=== PATIENT | male | born 1990 | race African-American/Black ===

== ENCOUNTER 2018-10-20 16:21 | Inpatient (IN) | payer MEDICAID, MEDICARE ==
[~2018-10-20] VITALS: Ht 160 cm; Wt 50.0 kg
[~2018-10-20 16:21] MED LIST: CINA30; PRED1TAB; TACR0.5C17
[2018-10-20] MEDS ORDERED: HYDRALAZINE 20MG/ML VIAL IV ONE (16:45)
[2018-10-20] MEDS ORDERED: MORPHINE SULFATE 4 MG/ML CPJ (NOT FOR IM USE) IV STA (16:50)
[2018-10-20] MEDS ORDERED: ONDANSETRON HCL 4MG/2ML INJ IV STA (16:50)
[2018-10-20 17:27] LABS: BASOPHILS % 1.7 % (0.0-2.0); EOSINOPHILS % 7.3 % (0.0-5.0); HEMATOCRIT. 32.5 % (42.0-52.0); HEMOGLOBIN. 10.5 g/dL (14.0-18.0); MEAN CORPUSCULAR HEMOGLOBIN 27.4 pg (28.0-32.0); MEAN CORPUSCULAR VOLUME 84.7 fL (80.0-94.0); MEAN PLATELET VOLUME 8.7 fl (7.4-10.4); MONOCYTES % 7.3 % (2.0-8.0); NEUTROPHILS % 68.7 % (40.0-76.0); PLATELET 124 x1000/uL (130-400); RED BLOOD CELL COUNT 3.84 mill/uL (4.7-6.1); RED CELL DISTRIBUTION WIDTH 22.3 % (11.6-14.6)
[2018-10-20 17:30] LABS: INR 1.1; PROTHROMBIN TIME 11.2 sec (9.1-11.1)
[2018-10-20 17:39] LABS: CHLORIDE 96 mEq/L (98-107)
[2018-10-20] MEDS ORDERED: DIPHENHYDRAMINE 50MG/ML VIAL IV ONE (18:00)
[2018-10-20 18:05] LABS: PLATELET ESTIMATE DECREASED
[2018-10-20] MEDS ORDERED: CLONIDINE 0.2MG TABLET PO ONE (18:45)
[2018-10-20] MEDS ORDERED: HYDRALAZINE 20MG/ML VIAL IV NR (20:45)
[2018-10-20] MEDS ORDERED: CLONIDINE 0.2MG TABLET PO PRN (23:42)
[2018-10-21] VITALS (73 sets, daily range): BP systolic 139–239; BP diastolic 63–143
[2018-10-21] MEDS ORDERED: HYDRALAZINE HCL 50MG TABLET PO SCH (01:00)
[2018-10-21] MEDS: ONDANSETRON HCL 4MG/2ML INJ IV PRN ×2 (01:11→15:25)
[2018-10-21] MEDS: HYDROCODONE/ACETAMINOPHEN 5/325MG TABLET PO PRN ×3 (01:14→15:02)
[2018-10-21] MEDS ORDERED: HYDR-4135 PO (02:03)
[2018-10-21] MEDS ORDERED: COR25 PO (02:03)
[2018-10-21] MEDS ORDERED: CLON0.3T4 PO (02:03)
[2018-10-21] MEDS: DIPHENHYDRAMINE 50MG/ML VIAL IV PRN ×4 (02:54→20:08)
[2018-10-21] MEDS: TEMAZEPAM 15MG CAPSULE PO PRN ×2 (02:55→22:04)
[2018-10-21] MEDS: MORPHINE SULFATE 4 MG/ML CPJ (NOT FOR IM USE) IV PRN ×4 (02:55→22:04)
[2018-10-21] MEDS ORDERED: MINOXIDIL 2.5MG TABLET PO SCH ×2 (06:00→13:24)
[2018-10-21] MEDS ORDERED: HYDRALAZINE 20MG/ML VIAL IV NR (06:00)
[2018-10-21] MEDS ORDERED: CLONIDINE 0.2MG TABLET PO PRN (07:45)
[2018-10-21] MEDS ORDERED: NITROGLYCERIN 50MG PREMIX 250 ML IV PRN (07:45)
[2018-10-21 07:50] LABS: EOSINOPHILS % 7.9 % (0.0-5.0); HEMATOCRIT. 32.5 % (42.0-52.0); HEMOGLOBIN. 10.8 g/dL (14.0-18.0); LYMPHOCYTES % 32.2 % (20.0-50.0); MEAN CORPUSCULAR HEMOGLOBIN 28.2 pg (28.0-32.0); MEAN CORPUSCULAR VOLUME 84.8 fL (80.0-94.0); MEAN PLATELET VOLUME 9.2 fl (7.4-10.4); MONOCYTES % 11.4 % (2.0-8.0); NEUTROPHILS % 46.5 % (40.0-76.0); PLATELET 134 x1000/uL (130-400); RED BLOOD CELL COUNT 3.83 mill/uL (4.7-6.1); RED CELL DISTRIBUTION WIDTH 22.3 % (11.6-14.6)
[2018-10-21] MEDS: PANTOPRAZOLE 40MG DR TABLET PO SCH (08:00)
[2018-10-21] MEDS ORDERED: LOSARTAN POTASSIUM 25 MG TABLET PO NR (11:30)
[2018-10-21] MEDS ORDERED: HYDRALAZINE HCL 50MG TABLET PO NR (11:30)
[2018-10-21] MEDS: DIPHENHYDRAMINE 50MG/ML VIAL IV NR ×2 (11:32→17:20)
[2018-10-21 13:00] LABS: CHLORIDE 98 mEq/L (98-107)
[2018-10-21 13:07] LABS: LDL CHOLESTEROL 59 mg/dL (5-100)
[2018-10-21 13:09] LABS: HDL CHOLESTEROL 45 mg/dL (40-59); T4 FREE 1.15 ng/dL (0.76-1.46)
[2018-10-21] MEDS ORDERED: ATENOLOL 25MG TABLET PO SCH (13:15)
[2018-10-21] MEDS ORDERED: HYDRALAZINE HCL 100MG TABLET PO SCH (14:00)
[2018-10-21] MEDS: ASPIRIN 81MG TABLET PO SCH (14:12)
[2018-10-21] MEDS ORDERED: MINOXIDIL 10MG TABLET PO NR (14:45)
[2018-10-21] MEDS ORDERED: NICARDIPINE 100 MG in SODIUM CHLORIDE 0.9% 60 ML IV PRN (16:45)
[2018-10-21] MEDS: NICARDIPINE 40MG/200ML PREMIX 200 ML IV PRN ×2 (16:59→20:48)
[2018-10-21] MEDS: HEPARIN 5000 UNITS/ML VIAL SUBCUT SCH (20:20)
[2018-10-21] MEDS: NIFEDIPINE XL 30MG TAB PO SCH (20:20)
[2018-10-21] MEDS: MINOXIDIL 2.5MG TABLET PO SCH (20:20)
[2018-10-22] VITALS (91 sets, daily range): BP systolic 137–192; BP diastolic 54–109
[2018-10-22] MEDS: NICARDIPINE 40MG/200ML PREMIX 200 ML IV PRN ×3 (00:03→07:56)
[2018-10-22] MEDS: ONDANSETRON HCL 4MG/2ML INJ IV PRN ×2 (00:46→08:49)
[2018-10-22] MEDS: DIPHENHYDRAMINE 50MG/ML VIAL IV PRN ×4 (00:59→19:51)
[2018-10-22] MEDS: MORPHINE SULFATE 4 MG/ML CPJ (NOT FOR IM USE) IV PRN ×4 (03:30→19:51)
[2018-10-22] MEDS: HYDROCODONE/ACETAMINOPHEN 5/325MG TABLET PO PRN ×2 (05:00→15:02)
[2018-10-22] MEDS: PANTOPRAZOLE 40MG DR TABLET PO SCH (05:44)
[2018-10-22 06:05] LABS: BASOPHILS % 1.8 % (0.0-2.0); EOSINOPHILS % 7.6 % (0.0-5.0); HEMATOCRIT. 36.6 % (42.0-52.0); HEMOGLOBIN. 11.9 g/dL (14.0-18.0); LYMPHOCYTES % 26.1 % (20.0-50.0); MEAN CORPUSCULAR HEMOGLOBIN 27.4 pg (28.0-32.0); MEAN CORPUSCULAR VOLUME 84.1 fL (80.0-94.0); MEAN PLATELET VOLUME 8.5 fl (7.4-10.4); MONOCYTES % 10.5 % (2.0-8.0); PLATELET 156 x1000/uL (130-400); RED BLOOD CELL COUNT 4.35 mill/uL (4.7-6.1); RED CELL DISTRIBUTION WIDTH 22.3 % (11.6-14.6)
[2018-10-22 06:25] LABS: PHOSPHORUS 5.4 mg/dL (2.5-4.9)
[2018-10-22] MEDS: MINOXIDIL 2.5MG TABLET PO SCH (08:28)
[2018-10-22] MEDS: NIFEDIPINE XL 30MG TAB PO SCH ×2 (08:29→20:25)
[2018-10-22] MEDS: ATENOLOL 50 MG TABLET PO SCH (08:29)
[2018-10-22] MEDS: LOSARTAN POTASSIUM 100 MG TABLET PO SCH (08:30)
[2018-10-22] MEDS: ASPIRIN 81MG TABLET PO SCH (08:30)
[2018-10-22] MEDS: HEPARIN 5000 UNITS/ML VIAL SUBCUT SCH ×2 (08:32→20:25)
[2018-10-22] MEDS ORDERED: LOSARTAN POTASSIUM 25 MG TABLET PO SCH (09:00)
[2018-10-22] MEDS ORDERED: CALCIUM CARBONATE 500MG TABLET CHEW PO PRN (10:45)
[2018-10-22] MEDS ORDERED: MINOXIDIL 2.5MG TABLET PO NR (12:30)
[2018-10-22] MEDS: NICARDIPINE 50 MG in SODIUM CHLORIDE 0.9% 250 ML IV PRN (18:51)
[2018-10-22] MEDS ORDERED: CLONIDINE 0.3MG TABLET PO NR (19:30)
[2018-10-22] MEDS ORDERED: MINOXIDIL 2.5MG TABLET PO SCH (21:00)
[2018-10-22] MEDS: TEMAZEPAM 15MG CAPSULE PO PRN (21:07)
[2018-10-22] MEDS ORDERED: IPRATROPIUM/ALBUTEROL 0.5-3(2.5)MG/3ML NEB HHN PRN (22:30)
[2018-10-23] VITALS (69 sets, daily range): BP systolic 127–181; BP diastolic 30–102
[2018-10-23] MEDS: ONDANSETRON HCL 4MG/2ML INJ IV PRN (00:15)
[2018-10-23] MEDS: MORPHINE SULFATE 4 MG/ML CPJ (NOT FOR IM USE) IV PRN ×4 (00:32→16:49)
[2018-10-23] MEDS: NICARDIPINE 50 MG in SODIUM CHLORIDE 0.9% 250 ML IV PRN ×3 (01:49→10:49)
[2018-10-23] MEDS: DIPHENHYDRAMINE 50MG/ML VIAL IV PRN ×3 (01:56→15:02)
[2018-10-23 05:37] LABS: HEMATOCRIT 37.6 % (42.0-52.0); HEMOGLOBIN 12.1 g/dL (14.0-18.0); MEAN CORPUSCULAR HEMOGLOBIN 27.2 pg (28.0-32.0); MEAN CORPUSCULAR VOLUME 84.3 fL (80.0-94.0); PLATELET 198 x1000/uL (130-400); RED BLOOD CELL COUNT 4.46 mill/uL (4.7-6.1); RED CELL DISTRIBUTION WIDTH 21.8 % (11.6-14.6)
[2018-10-23] MEDS: PANTOPRAZOLE 40MG DR TABLET PO SCH (05:47)
[2018-10-23] MEDS ORDERED: CLONIDINE 0.2MG TABLET PO SCH (06:00)
[2018-10-23] MEDS: LOSARTAN POTASSIUM 100 MG TABLET PO SCH (08:55)
[2018-10-23] MEDS: ASPIRIN 81MG TABLET PO SCH (08:55)
[2018-10-23] MEDS: NIFEDIPINE XL 30MG TAB PO SCH (08:56)
[2018-10-23] MEDS: ATENOLOL 50 MG TABLET PO SCH (08:56)
[2018-10-23] MEDS: HEPARIN 5000 UNITS/ML VIAL SUBCUT SCH (08:57)
[2018-10-23] MEDS: HYDROCODONE/ACETAMINOPHEN 5/325MG TABLET PO PRN (10:38)
[2018-10-23] MEDS ORDERED: MINOXIDIL 10MG TABLET PO SCH ×2 (11:00→21:00)
[2018-10-23] MEDS ORDERED: HYDROMORPHONE HCL/PF 2MG/ML CPJ IV NR (12:15)
[2018-10-23 12:27] LABS: BG CARBOXYHEMOGLOBIN 1.5 % (0.5-1.5); BG FRACTION INSPIRED OXYGEN 21; BG HCO3 ACT 23.1 mmol/L (22.0-26.0); BG METHEMOGLOBIN 0.3 % (0.0-1.5); BG OXYGEN SATURATION 82.7 % (92.0-98.5); BG OXYHEMOGLOBIN 81.2 % (94.0-97.0); BG PCO2 40.7 mmHg (35.0-45.0); BG PH 7.372 (7.350-7.450); BG PO2 48.3 mmHg (75.0-100.0); BG SAMPLE SITE LEFT RADIAL; BG TOTAL HEMOGLOBIN 11.4 g/dL (12.0-18.0); BG VENT MODE ROOM AIR
[2018-10-23] MEDS ORDERED: HYDRALAZINE HCL 50MG TABLET PO SCH (14:00)
[2018-10-23] MEDS ORDERED: HEPARIN SODIUM 1,000 UNIT/1ML VIAL IV NR (14:15)
[2018-10-23 18:46] LABS: BG BASE EXCESS 2.2 mmol/L (-2.0-2.0); BG CARBOXYHEMOGLOBIN 1.2 % (0.5-1.5); BG DEOXYHEMOGLOBIN 5.9 % (0.0-5.0); BG FRACTION INSPIRED OXYGEN 21; BG HCO3 ACT 26.8 mmol/L (22.0-26.0); BG OXYHEMOGLOBIN 92.9 % (94.0-97.0); BG PCO2 41.9 mmHg (35.0-45.0); BG PH 7.424 (7.350-7.450); BG PO2 75.8 mmHg (75.0-100.0); BG SAMPLE SITE LEFT RADIAL; BG TOTAL HEMOGLOBIN 10.2 g/dL (12.0-18.0); BG VENT MODE ROOM AIR
[2018-10-23] MEDS ORDERED: NIFEDIPINE XL 60MG TAB PO SCH (21:00)
[2018-10-24] MEDS ORDERED: ATENOLOL 100 MG TABLET PO SCH (09:00)
== END 2018-10-23 19:50 | disposition home or self-care (01) | DRG 194 ==
LOC: ER 16:21 → ENRESERV 20:54 → 8WST 10-21 00:21 → MICUSO 10-21 07:17
PROVIDERS: ADMIT Internal Medicine; ATTEND Internal Medicine
PROC: 5A1D70Z Performance of Urinary Filtration, Intermittent, Less than 6 Hours Per Day (ICD-10-PCS; 2018-10-21)
PROC: 5A1D70Z Performance of Urinary Filtration, Intermittent, Less than 6 Hours Per Day (ICD-10-PCS; principal; 2018-10-23)
DX: I13.2 Hypertensive heart and chronic kidney disease with heart failure and with stage 5 chronic kidney disease, or end stage renal disease (principal); I27.20 Pulmonary hypertension, unspecified; D68.59 Other primary thrombophilia; N18.6 End stage renal disease; E87.1 Hypo-osmolality and hyponatremia; I07.1 Rheumatic tricuspid insufficiency; I31.3 Pericardial effusion (noninflammatory); I16.0 Hypertensive urgency; I50.33 Acute on chronic diastolic (congestive) heart failure; M87.9 Osteonecrosis, unspecified; R26.9 Unspecified abnormalities of gait and mobility; N25.81 Secondary hyperparathyroidism of renal origin; D64.9 Anemia, unspecified; M25.552 Pain in left hip; G89.29 Other chronic pain; K21.9 Gastro-esophageal reflux disease without esophagitis; Z82.49 Family history of ischemic heart disease and other diseases of the circulatory system; Z83.3 Family history of diabetes mellitus; Z91.19 Patient's noncompliance with other medical treatment and regimen; Z94.0 Kidney transplant status; Z99.2 Dependence on renal dialysis; Z88.0 Allergy status to penicillin; Z88.8 Allergy status to other drugs, medicaments and biological substances; Z79.899 Other long term (current) drug therapy
CPT/HCPCS: 36415; 36600; 71045; 80048; 80061; 82375; 82805; 83735; 84100; 84439; 84443; 84484; 85027; 93005; 93306; 96374; 96375; 97116; 97162; 97530; 99291; J0360; J1170; J1200; J1644; J2270; J2405; J3490; J7050; J7620

== ENCOUNTER 2018-11-11 18:03 | Inpatient (IN) | payer MEDICARE ==
[~2018-11-11] VITALS: Ht 160 cm; Wt 50.8 kg
[2018-11-11] MEDS ORDERED: ONDANSETRON HCL 4MG/2ML INJ IV STA (19:31)
[2018-11-11] MEDS ORDERED: MORPHINE SULFATE 4 MG/ML CPJ (NOT FOR IM USE) IV STA (19:31)
[2018-11-11] MEDS ORDERED: DIPHENHYDRAMINE 50MG/ML VIAL IV ONE ×2 (19:45→22:30)
[2018-11-11 20:08] LABS: BASOPHILS % 1.4 % (0.0-2.0); EOSINOPHILS % 4.9 % (0.0-5.0); HEMATOCRIT. 38.4 % (42.0-52.0); HEMOGLOBIN. 12.4 g/dL (14.0-18.0); LYMPHOCYTES % 13.2 % (20.0-50.0); MEAN CORPUSCULAR HEMOGLOBIN 26.2 pg (28.0-32.0); MEAN CORPUSCULAR VOLUME 81.4 fL (80.0-94.0); MEAN PLATELET VOLUME 8.8 fl (7.4-10.4); MONOCYTES % 4.4 % (2.0-8.0); NEUTROPHILS % 76.1 % (40.0-76.0); PLATELET 163 x1000/uL (130-400); RED BLOOD CELL COUNT 4.72 mill/uL (4.7-6.1); RED CELL DISTRIBUTION WIDTH 22.1 % (11.6-14.6)
[2018-11-11 20:13] LABS: CHLORIDE 96 mEq/L (98-107)
[2018-11-11 20:16] LABS: INR 1.1; PARTIAL THROMBOPLASTIN TIME 34.4 sec (23.4-31.0); PROTHROMBIN TIME 10.8 sec (9.1-11.1)
[2018-11-11 20:17] LABS: ETHANOL BLOOD < 10 mg/dL
[2018-11-11 20:19] LABS: PLATELET ESTIMATE NORMAL
[2018-11-11] MEDS ORDERED: HYDRALAZINE 20MG/ML VIAL IV ONE ×2 (21:15→22:30)
[2018-11-11] MEDS ORDERED: ONDANSETRON HCL 4MG/2ML INJ IV ONE (22:30)
[2018-11-11] MEDS ORDERED: MORPHINE SULFATE 10 MG/ML CPJ IV ONE (22:30)
[2018-11-12] MEDS ORDERED: CLONIDINE 0.2MG TABLET PO SCH (02:45)
[2018-11-12] MEDS ORDERED: HYDRALAZINE HCL 25MG TABLET PO SCH (06:00)
[2018-11-12] MEDS: CLONIDINE 0.2MG TABLET PO PRN ×2 (08:30→16:46)
[2018-11-12] MEDS ORDERED: MORPHINE SULFATE 4 MG/ML CPJ (NOT FOR IM USE) IV NR ×2 (09:45→19:00)
[2018-11-12 11:00] VITALS: BP 227/135
[2018-11-12] MEDS ORDERED: CLONIDINE 0.1MG TABLET PO PRN (11:30)
[2018-11-12] MEDS ORDERED: NA PHOS,M-B/NA PHOS,DI-BA ENEMA 118ML PR PRN (11:30)
[2018-11-12] MEDS ORDERED: HYDROCODONE/ACETAMINOPHEN 5/325MG TABLET PO PRN (11:30)
[2018-11-12] MEDS ORDERED: MAGNESIUM/ALUMINUM HYDROXIDE/SIMETHICONE 30ML UDC PO PRN (11:30)
[2018-11-12] MEDS ORDERED: GUAIFENESIN 200MG/10ML SUGAR FREE UDC PO PRN (11:30)
[2018-11-12] MEDS ORDERED: IPRATROPIUM/ALBUTEROL 0.5-3(2.5)MG/3ML NEB INH PRN (11:30)
[2018-11-12] MEDS ORDERED: ACETAMINOPHEN 325MG TABLET PO PRN (11:30)
[2018-11-12] MEDS ORDERED: ACETAMINOPHEN 650MG SUPP PR PRN (11:30)
[2018-11-12] MEDS ORDERED: DOCUSATE SODIUM 100MG CAPSULE PO PRN (11:30)
[2018-11-12] MEDS ORDERED: LORAZEPAM 0.5MG TABLET PO PRN ×2 (11:30→19:30)
[2018-11-12] MEDS: MINOXIDIL 2.5MG TABLET PO SCH ×2 (11:34→16:49)
[2018-11-12 12:00] VITALS: BP 122/113
[2018-11-12] MEDS: DIPHENHYDRAMINE 50MG/ML VIAL IV PRN ×3 (12:27→21:12)
[2018-11-12 16:00] VITALS: BP 199/117
[2018-11-12] MEDS: NIFEDIPINE XL 60MG TAB PO SCH ×2 (16:45→20:21)
[2018-11-12] MEDS ORDERED: LEVOFLOXACIN 500MG PREMIX 100 ML IV SCH (17:00)
[2018-11-12 18:00] VITALS: BP 199/117
[2018-11-12] MEDS ORDERED: ATENOLOL 50 MG TABLET PO SCH ×2 (19:30→21:00)
[2018-11-12 20:00] VITALS: BP 203/111
[2018-11-12] MEDS: HYDRALAZINE HCL 50MG TABLET PO SCH (20:20)
[2018-11-12] MEDS ORDERED: NIFE60TA64 PO (20:29)
[2018-11-12] MEDS ORDERED: HEPARIN 5000 UNITS/ML VIAL SUBCUT SCH (21:00)
[2018-11-12] MEDS: ONDANSETRON HCL 4MG/2ML INJ IV PRN (21:12)
[2018-11-12] MEDS ORDERED: HYDRALAZINE HCL 50MG TABLET PO SCH (22:00)
[2018-11-13] VITALS: BP 152/85
[2018-11-13] MEDS: DIPHENHYDRAMINE 50MG/ML VIAL IV PRN ×2 (01:04→05:13)
[2018-11-13 04:00] VITALS: BP 169/93
[2018-11-13] MEDS: ONDANSETRON HCL 4MG/2ML INJ IV PRN (04:01)
[2018-11-13] MEDS: HYDRALAZINE HCL 50MG TABLET PO SCH (05:13)
[2018-11-13 06:55] LABS: BASOPHILS % 2.4 % (0.0-2.0); EOSINOPHILS % 7.6 % (0.0-5.0); HEMATOCRIT. 40.7 % (42.0-52.0); HEMOGLOBIN. 12.9 g/dL (14.0-18.0); LYMPHOCYTES % 20.9 % (20.0-50.0); MEAN CORPUSCULAR HEMOGLOBIN 26.5 pg (28.0-32.0); MEAN CORPUSCULAR VOLUME 83.3 fL (80.0-94.0); MEAN PLATELET VOLUME 8.6 fl (7.4-10.4); MONOCYTES % 6.5 % (2.0-8.0); NEUTROPHILS % 62.6 % (40.0-76.0); PLATELET 117 x1000/uL (130-400); RED BLOOD CELL COUNT 4.88 mill/uL (4.7-6.1); RED CELL DISTRIBUTION WIDTH 23.3 % (11.6-14.6)
[2018-11-13 08:53] LABS: CHLORIDE 96 mEq/L (98-107)
[2018-11-13] MEDS ORDERED: ASPIRIN 81MG TABLET PO SCH (09:00)
[2018-11-13 09:52] LABS: PHOSPHORUS 7.1 mg/dL (2.5-4.9)
[2018-11-13 09:53] LABS: LDL CHOLESTEROL 67 mg/dL (5-100)
[2018-11-13 09:55] LABS: HDL CHOLESTEROL 48 mg/dL (40-59)
[2018-11-14] MEDS ORDERED: LEVOFLOXACIN 250MG PREMIX 50 ML IV SCH (17:00)
== END 2018-11-13 09:21 | disposition left against medical advice (07) | DRG 194 ==
LOC: ER 18:03 → 6WST 21:31 → EDBEDREQ 21:33 → ENRESERV 11-12 09:45
PROVIDERS: ADMIT Internal Medicine; ATTEND Internal Medicine
PROC: 5A1D70Z Performance of Urinary Filtration, Intermittent, Less than 6 Hours Per Day (ICD-10-PCS; principal; 2018-11-12)
DX: I13.2 Hypertensive heart and chronic kidney disease with heart failure and with stage 5 chronic kidney disease, or end stage renal disease (principal); D68.59 Other primary thrombophilia; I27.20 Pulmonary hypertension, unspecified; I31.3 Pericardial effusion (noninflammatory); N18.6 End stage renal disease; D64.9 Anemia, unspecified; I16.0 Hypertensive urgency; I50.33 Acute on chronic diastolic (congestive) heart failure; K21.9 Gastro-esophageal reflux disease without esophagitis; N25.81 Secondary hyperparathyroidism of renal origin; Z82.49 Family history of ischemic heart disease and other diseases of the circulatory system; Z99.2 Dependence on renal dialysis; Z94.0 Kidney transplant status; Z88.9 Allergy status to unspecified drugs, medicaments and biological substances; R26.9 Unspecified abnormalities of gait and mobility; A08.4 Viral intestinal infection, unspecified
CPT/HCPCS: 36415; 71045; 74176; 76700; 80048; 80061; 83605; 83735; 83880; 84100; 84484; 93005; 96365; 96375; 99285; J0360; J1200; J1644; J1956; J2270; J2405; J7040

== ENCOUNTER 2018-12-03 02:14 | Emergency (ER) | payer MEDICARE ==
[~2018-12-03] VITALS: Ht 165.1 cm; Wt 70.0 kg
[~2018-12-03 02:14] MED LIST changes: +NIFE60TA64 PO
[2018-12-03 04:21] VITALS: BP 188/100
== END 2018-12-03 09:08 | disposition left against medical advice (07) ==
LOC: ER 02:14
DX: Z53.21 Procedure and treatment not carried out due to patient leaving prior to being seen by health care provider (principal)

== ENCOUNTER 2018-12-29 03:56 | Inpatient (IN) | payer MEDICARE ==
[2018-12-29] VITALS (57 sets, daily range): BP systolic 133–199; BP diastolic 69–130
[~2018-12-29] VITALS: Ht 160 cm; Wt 51.3 kg
[2018-12-29] MEDS ORDERED: LABETALOL HCL 20MG/4ML CARPUJECT IV ONE ×3 (04:15→05:30)
[2018-12-29] MEDS ORDERED: PROCHLORPERAZINE MALEATE 10MG TABLET PO ONE (04:15)
[2018-12-29 04:34] LABS: HEMATOCRIT 33.4 % (42.0-52.0); HEMOGLOBIN 11.1 g/dL (14.0-18.0); MEAN CORPUSCULAR HEMOGLOBIN 27.3 pg (28.0-32.0); PLATELET 177 x1000/uL (130-400); RED BLOOD CELL COUNT 4.07 mill/uL (4.7-6.1); RED CELL DISTRIBUTION WIDTH 25.2 % (11.6-14.6)
[2018-12-29 04:36] LABS: CHLORIDE 103 mEq/L (98-107)
[2018-12-29] MEDS ORDERED: CLONIDINE 0.3MG TABLET PO ONE (04:45)
[2018-12-29] MEDS ORDERED: ONDANSETRON HCL 4MG/2ML INJ IV ONE (05:15)
[2018-12-29] MEDS ORDERED: DIPHENHYDRAMINE 50MG/ML VIAL IV ONE (05:15)
[2018-12-29] MEDS ORDERED: MORPHINE SULFATE 4 MG/ML CPJ (NOT FOR IM USE) IV ONE (05:15)
[2018-12-29] MEDS ORDERED: NICARDIPINE 100 MG in SODIUM CHLORIDE 0.9% 60 ML IV STA (05:21)
[2018-12-29] MEDS ORDERED: NICARDIPINE 40MG/200ML PREMIX 200 ML IV PRN (05:45)
[2018-12-29] MEDS ORDERED: LABETALOL 5MG/ML SYR 20 MG/4 ML SYRINGE IV ONE (08:15)
[2018-12-29] MEDS ORDERED: GUAIFENESIN 200MG/10ML SUGAR FREE UDC PO PRN (10:15)
[2018-12-29] MEDS ORDERED: LORAZEPAM 0.5MG TABLET PO PRN (10:15)
[2018-12-29] MEDS ORDERED: ACETAMINOPHEN 650MG SUPP PR PRN (10:15)
[2018-12-29] MEDS ORDERED: DOCUSATE SODIUM 100MG CAPSULE PO PRN (10:15)
[2018-12-29] MEDS ORDERED: NA PHOS,M-B/NA PHOS,DI-BA ENEMA 118ML PR PRN (10:15)
[2018-12-29] MEDS ORDERED: ACETAMINOPHEN 325MG TABLET PO PRN (10:15)
[2018-12-29] MEDS ORDERED: IPRATROPIUM/ALBUTEROL 0.5-3(2.5)MG/3ML NEB INH PRN (10:15)
[2018-12-29] MEDS ORDERED: MAGNESIUM/ALUMINUM HYDROXIDE/SIMETHICONE 30ML UDC PO PRN (10:15)
[2018-12-29] MEDS ORDERED: NIFEDIPINE XL 60MG TAB PO SCH (10:15)
[2018-12-29] MEDS ORDERED: MORPHINE SULFATE 4 MG/ML CPJ (NOT FOR IM USE) IV SCH (10:45)
[2018-12-29] MEDS: DIPHENHYDRAMINE 50MG/ML VIAL IV PRN ×3 (11:22→19:50)
[2018-12-29 12:53] LABS: BG BASE EXCESS -6.1 mmol/L (-2.0-2.0); BG DEOXYHEMOGLOBIN 4.1 % (0.0-5.0); BG FRACTION INSPIRED OXYGEN 40; BG HCO3 ACT 19.4 mmol/L (22.0-26.0); BG METHEMOGLOBIN 0.1 % (0.0-1.5); BG OXYGEN SATURATION 95.9 % (92.0-98.5); BG OXYHEMOGLOBIN 94.8 % (94.0-97.0); BG PCO2 38.5 mmHg (35.0-45.0); BG PH 7.321 (7.350-7.450); BG PO2 88.9 mmHg (75.0-100.0); BG SAMPLE SITE RIGHT RADIAL; BG TOTAL HEMOGLOBIN 12.1 g/dL (12.0-18.0); BG VENT MODE NASAL CANNULA
[2018-12-29] MEDS: CLONIDINE 0.1MG TABLET PO PRN ×2 (13:54→20:03)
[2018-12-29] MEDS ORDERED: PREDNISONE 1MG TABLET PO SCH (16:00)
[2018-12-29] MEDS ORDERED: TACROLIMUS 0.5 MG CAPSULE PO SCH (16:00)
[2018-12-29] MEDS: CLONIDINE 0.2MG TABLET PO SCH ×2 (18:06→21:01)
[2018-12-29] MEDS: HYDRALAZINE HCL 50MG TABLET PO SCH ×2 (18:07→21:02)
[2018-12-29] MEDS: MORPHINE SULFATE 4 MG/ML CPJ (NOT FOR IM USE) IV PRN (19:52)
[2018-12-29] MEDS: HEPARIN 5000 UNITS/ML VIAL SUBCUT SCH (21:01)
[2018-12-29] MEDS ORDERED: HYDRALAZINE 20MG/ML VIAL IV NR (22:30)
[2018-12-30] VITALS (102 sets, daily range): BP systolic 114–202; BP diastolic 57–142
[2018-12-30] MEDS: MORPHINE SULFATE 4 MG/ML CPJ (NOT FOR IM USE) IV PRN ×5 (00:09→19:52)
[2018-12-30] MEDS: DIPHENHYDRAMINE 50MG/ML VIAL IV PRN ×5 (00:28→19:50)
[2018-12-30] MEDS: CLONIDINE 0.1MG TABLET PO PRN ×2 (01:30→22:53)
[2018-12-30] MEDS ORDERED: MINOXIDIL 2.5MG TABLET PO NR (03:30)
[2018-12-30] MEDS: HYDROCODONE/ACETAMINOPHEN 5/325MG TABLET PO PRN ×4 (03:50→18:35)
[2018-12-30] MEDS ORDERED: NICARDIPINE 40MG/200ML PREMIX 200 ML IV PRN ×2 (04:45)
[2018-12-30] MEDS: NICARDIPINE 50 MG in SODIUM CHLORIDE 0.9% 230 ML IV PRN ×2 (04:56→14:45)
[2018-12-30 05:47] LABS: BASOPHILS % 1.6 % (0.0-2.0); EOSINOPHILS % 5.6 % (0.0-5.0); HEMATOCRIT. 34.6 % (42.0-52.0); HEMOGLOBIN. 11.3 g/dL (14.0-18.0); LYMPHOCYTES % 16.8 % (20.0-50.0); MEAN CORPUSCULAR HEMOGLOBIN 27.1 pg (28.0-32.0); MEAN CORPUSCULAR VOLUME 82.6 fL (80.0-94.0); MEAN PLATELET VOLUME 8.5 fl (7.4-10.4); MONOCYTES % 4.6 % (2.0-8.0); NEUTROPHILS % 71.4 % (40.0-76.0); PLATELET 186 x1000/uL (130-400); RED BLOOD CELL COUNT 4.19 mill/uL (4.7-6.1); RED CELL DISTRIBUTION WIDTH 24.1 % (11.6-14.6)
[2018-12-30] MEDS: CLONIDINE 0.3MG TABLET PO SCH ×3 (05:47→21:32)
[2018-12-30 06:00] LABS: CHLORIDE 103 mEq/L (98-107)
[2018-12-30] MEDS ORDERED: HYDRALAZINE HCL 100MG TABLET PO SCH (06:00)
[2018-12-30 06:10] LABS: LDL CHOLESTEROL 68 mg/dL (5-100)
[2018-12-30 06:12] LABS: HDL CHOLESTEROL 71 mg/dL (40-59)
[2018-12-30] MEDS: ONDANSETRON HCL 4MG/2ML INJ IV PRN ×3 (08:14→18:35)
[2018-12-30] MEDS ORDERED: NIFEDIPINE XL 60MG TAB PO SCH (09:00)
[2018-12-30] MEDS: HEPARIN 5000 UNITS/ML VIAL SUBCUT SCH ×2 (09:00→20:50)
[2018-12-30] MEDS: MINOXIDIL 2.5MG TABLET PO SCH ×2 (09:06→20:49)
[2018-12-30 12:18] LABS: PLATELET ESTIMATE NORMAL
[2018-12-30] MEDS: CALCIUM ACETATE 667MG CAPSULE PO SCH ×2 (13:10→18:40)
[2018-12-30] MEDS ORDERED: NICARDIPINE 50 MG in SODIUM CHLORIDE 0.9% 230 ML IV PRN (16:00)
[2018-12-30] MEDS: NIFEDIPINE XL 60MG TAB PO SCH (20:50)
[2018-12-31] VITALS (41 sets, daily range): BP systolic 135–169; BP diastolic 63–110
[2018-12-31] MEDS: MORPHINE SULFATE 4 MG/ML CPJ (NOT FOR IM USE) IV PRN ×3 (00:30→09:37)
[2018-12-31] MEDS: DIPHENHYDRAMINE 50MG/ML VIAL IV PRN ×2 (01:28→06:42)
[2018-12-31] MEDS: CLONIDINE 0.3MG TABLET PO SCH (05:07)
[2018-12-31 06:25] LABS: BASOPHILS % 1.2 % (0.0-2.0); EOSINOPHILS % 9.7 % (0.0-5.0); HEMATOCRIT. 33.9 % (42.0-52.0); HEMOGLOBIN. 11.1 g/dL (14.0-18.0); MEAN CORPUSCULAR HEMOGLOBIN 27.5 pg (28.0-32.0); MEAN CORPUSCULAR VOLUME 83.9 fL (80.0-94.0); MONOCYTES % 8.8 % (2.0-8.0); NEUTROPHILS % 57.3 % (40.0-76.0); PLATELET 178 x1000/uL (130-400); RED BLOOD CELL COUNT 4.04 mill/uL (4.7-6.1); RED CELL DISTRIBUTION WIDTH 24.3 % (11.6-14.6)
[2018-12-31] MEDS: HEPARIN 5000 UNITS/ML VIAL SUBCUT SCH (09:01)
[2018-12-31] MEDS: CALCIUM ACETATE 667MG CAPSULE PO SCH (09:01)
[2018-12-31] MEDS: MINOXIDIL 2.5MG TABLET PO SCH (09:01)
[2018-12-31] MEDS: NIFEDIPINE XL 60MG TAB PO SCH (09:02)
[2018-12-31] MEDS ORDERED: DIPHENHYDRAMINE 50MG/ML VIAL IV NR (11:45)
== END 2018-12-31 13:55 | disposition home or self-care (01) | DRG 133 ==
LOC: ER 04:21 → CVICU 05:23 → EDBEDREQTM 05:28 → EDBEDREQSVC 05:28 → ENRESERV 07:49 → CANRESERV 07:49 → ENRESERV 08:34
PROVIDERS: ADMIT Internal Medicine; ATTEND Internal Medicine
PROC: 5A1D70Z Performance of Urinary Filtration, Intermittent, Less than 6 Hours Per Day (ICD-10-PCS; principal; 2018-12-29)
PROC: 5A1D70Z Performance of Urinary Filtration, Intermittent, Less than 6 Hours Per Day (ICD-10-PCS; 2018-12-30)
DX: J96.00 Acute respiratory failure, unspecified whether with hypoxia or hypercapnia (principal); I13.2 Hypertensive heart and chronic kidney disease with heart failure and with stage 5 chronic kidney disease, or end stage renal disease; I27.20 Pulmonary hypertension, unspecified; I31.3 Pericardial effusion (noninflammatory); D68.59 Other primary thrombophilia; N18.6 End stage renal disease; I07.1 Rheumatic tricuspid insufficiency; I50.33 Acute on chronic diastolic (congestive) heart failure; D64.9 Anemia, unspecified; N25.81 Secondary hyperparathyroidism of renal origin; K21.9 Gastro-esophageal reflux disease without esophagitis; R26.9 Unspecified abnormalities of gait and mobility; M87.852 Other osteonecrosis, left femur; M87.851 Other osteonecrosis, right femur; Z94.0 Kidney transplant status; Z99.2 Dependence on renal dialysis; Z82.49 Family history of ischemic heart disease and other diseases of the circulatory system; Z88.1 Allergy status to other antibiotic agents; I16.0 Hypertensive urgency
CPT/HCPCS: 36415; 36600; 71045; 80048; 80061; 82375; 82805; 83735; 84100; 85027; 96374; 96375; 97161; 99291; J0360; J1200; J1644; J2270; J2405; J3490; J7050; J7512; J7620; Q0164

== ENCOUNTER 2022-06-09 10:39 | Inpatient (IN) | payer MEDICAID, MEDICARE, OTHER ==
[~2022-06-09] VITALS: Ht 160 cm; Wt 60.8 kg
[2022-06-09] MEDS ORDERED: MORPHINE SULFATE 4 MG/ML CPJ (NOT FOR IM USE) IV ONE ×2 (11:45→14:45)
[2022-06-09] MEDS ORDERED: ONDANSETRON HCL 4MG/2ML INJ IV ONE (12:00)
[2022-06-09] MEDS ORDERED: ONDANSETRON HCL 4MG TABLET PO ONE (12:00)
[2022-06-09] MEDS ORDERED: DIPHENHYDRAMINE 50MG/ML VIAL IV ONE ×2 (12:00→14:45)
[2022-06-09 12:10] LABS: HEMATOCRIT. 34.3 % (42.0-52.0); HEMOGLOBIN. 11.8 g/dL (14.0-18.0); MEAN CORPUSCULAR HEMOGLOBIN 28.7 pg (28.0-32.0); MEAN CORPUSCULAR VOLUME 83.2 fL (80.0-94.0); PLATELET 121 x1000/uL (130-400); RED BLOOD CELL COUNT 4.13 mill/uL (4.7-6.1); RED CELL DISTRIBUTION WIDTH 20.4 % (11.6-14.6)
[2022-06-09 12:20] LABS: CHLORIDE 86 mEq/L (98-107)
[2022-06-09] MEDS ORDERED: CALCIUM GLUCONATE 1,000 MG in DEXT 5% WATER 100 ML IV ONE (12:45)
[2022-06-09 12:58] LABS: PLATELET ESTIMATE SLIGHTLY DECREASED
[2022-06-09] MEDS ORDERED: CALCIUM GLUCONATE 1GM PREMIX 50 ML IV NR (13:15)
[2022-06-09] MEDS ORDERED: CEFTRIAXONE 1 G PREMIX 50 ML IV ONE (15:30)
[2022-06-09] MEDS ORDERED: AZITHROMYCIN 500 MG in DEXT 5% WATER 250 ML IV SCH (15:30)
[2022-06-09] MEDS ORDERED: CLONIDINE 0.1MG TABLET PO PRN (19:15)
[2022-06-09] MEDS ORDERED: NALOXONE HCL 0.4MG/ML VIAL IV PRN (19:15)
[2022-06-09 20:00] VITALS: BP 179/107
[2022-06-09] MEDS ORDERED: ACETAMINOPHEN 325MG TABLET PO PRN (20:30)
[2022-06-09] MEDS ORDERED: HYDROCODONE/ACETAMINOPHEN 5/325MG TABLET PO PRN (20:30)
[2022-06-09] MEDS ORDERED: LABE200T9 PO (20:37)
[2022-06-09] MEDS ORDERED: CINA90TA PO (20:37)
[2022-06-09] MEDS ORDERED: AMLO10TA80 PO (20:37)
[2022-06-09] MEDS: HYDROCODONE/ACETAMINOPHEN 10/325MG TABLET PO PRN (21:09)
[2022-06-09] MEDS: LABETALOL HCL 200MG TABLET PO SCH (21:09)
[2022-06-09] MEDS ORDERED: DIPHENHYDRAMINE 50MG CAPSULE PO PRN (21:30)
[2022-06-09] MEDS: DIPHENHYDRAMINE 50MG/ML VIAL IV PRN (22:15)
[2022-06-09 23:50] VITALS: BP 179/107
[2022-06-10] VITALS (7 sets, daily range): BP systolic 135–159; BP diastolic 86–109
[2022-06-10] MEDS: HYDROCODONE/ACETAMINOPHEN 10/325MG TABLET PO PRN ×3 (01:35→17:47)
[2022-06-10] MEDS ORDERED: *PATIENT'S OWN MEDICATION STORAGE XX SCH (02:00)
[2022-06-10 02:02] LABS: HEPATITIS B SURFACE ANTIGEN NEGATIVE
[2022-06-10] MEDS: ONDANSETRON HCL 4MG/2ML INJ IV PRN (07:01)
[2022-06-10] MEDS: DIPHENHYDRAMINE 50MG/ML VIAL IV PRN ×3 (07:28→20:30)
[2022-06-10 07:39] LABS: HEMATOCRIT. 30.3 % (42.0-52.0); HEMOGLOBIN. 10.4 g/dL (14.0-18.0); MEAN CORPUSCULAR HEMOGLOBIN 28.8 pg (28.0-32.0); MEAN CORPUSCULAR VOLUME 84.1 fL (80.0-94.0); MEAN PLATELET VOLUME 7.9 fl (7.4-10.4); PLATELET 113 x1000/uL (130-400); RED CELL DISTRIBUTION WIDTH 20.6 % (11.6-14.6)
[2022-06-10 08:54] LABS: PLATELET ESTIMATE DECREASED
[2022-06-10] MEDS: FOLIC ACID/VITAMIN B COMP W-C TABLET PO SCH (09:01)
[2022-06-10] MEDS: ASPIRIN 81MG TABLET PO SCH (09:01)
[2022-06-10] MEDS: CALCIUM ACETATE 667MG CAPSULE PO SCH ×3 (09:01→17:32)
[2022-06-10] MEDS: CINACALCET HCL 90MG TABLET PO SCH (09:01)
[2022-06-10] MEDS: LABETALOL HCL 200MG TABLET PO SCH ×2 (09:01→20:30)
[2022-06-10] MEDS: AMLODIPINE 10MG TABLET PO SCH (09:01)
[2022-06-10] MEDS ORDERED: CEFTRIAXONE 1 G PREMIX 50 ML IV SCH (14:15)
[2022-06-10] MEDS ORDERED: VANCOMYCIN 1GM PMX (XELLIA) 200 ML IV NR (16:00)
[2022-06-10] MEDS: CEFTRIAXONE 1,000 MG in DEXTROSE 5% WATER 50 ML IV SCH (17:32)
[2022-06-10] MEDS ORDERED: MINO10TA16 PO (19:49)
[2022-06-10] MEDS ORDERED: SEVE800T8 PO (19:50)
[2022-06-10] MEDS ORDERED: SUCR500T PO (19:51)
[2022-06-10] MEDS ORDERED: CLON0.2T PO (19:51)
[2022-06-10] MEDS ORDERED: IOHEXOL-300 100 ML BOTTLE ONE (22:17)
[2022-06-11] MEDS: HYDROCODONE/ACETAMINOPHEN 10/325MG TABLET PO PRN ×2 (03:27→14:31)
[2022-06-11 04:00] VITALS: BP 143/90
[2022-06-11] MEDS: DIPHENHYDRAMINE 50MG/ML VIAL IV PRN (04:33)
[2022-06-11 07:07] LABS: HEMATOCRIT. 28.7 % (42.0-52.0); HEMOGLOBIN. 9.9 g/dL (14.0-18.0); MEAN CORPUSCULAR HEMOGLOBIN 28.4 pg (28.0-32.0); MEAN CORPUSCULAR VOLUME 82.8 fL (80.0-94.0); MEAN PLATELET VOLUME 8.1 fl (7.4-10.4); PLATELET 135 x1000/uL (130-400); RED BLOOD CELL COUNT 3.47 mill/uL (4.7-6.1); RED CELL DISTRIBUTION WIDTH 20.6 % (11.6-14.6)
[2022-06-11] MEDS: CALCIUM ACETATE 667MG CAPSULE PO SCH ×3 (07:50→17:13)
[2022-06-11 08:00] VITALS: BP 138/89
[2022-06-11] MEDS: FOLIC ACID/VITAMIN B COMP W-C TABLET PO SCH (08:41)
[2022-06-11] MEDS: CINACALCET HCL 90MG TABLET PO SCH (08:41)
[2022-06-11] MEDS: ASPIRIN 81MG TABLET PO SCH (08:41)
[2022-06-11] MEDS: AMLODIPINE 10MG TABLET PO SCH (08:41)
[2022-06-11] MEDS: LABETALOL HCL 200MG TABLET PO SCH ×2 (08:42→20:50)
[2022-06-11 09:45] LABS: PLATELET ESTIMATE NORMAL
[2022-06-11 12:00] VITALS: BP 138/68
[2022-06-11] MEDS: DIPHENHYDRAMINE 50MG CAPSULE PO PRN ×2 (14:31→20:49)
[2022-06-11 16:00] VITALS: BP 129/65
[2022-06-11] MEDS: AZITHROMYCIN 500 MG in DEXT 5% WATER 250 ML IV SCH (18:17)
[2022-06-11 20:00] VITALS: BP 137/81
[2022-06-11] MEDS: CEFTRIAXONE 1,000 MG in DEXTROSE 5% WATER 50 ML IV SCH (20:05)
[2022-06-11] MEDS: GUAIFENESIN 600MG ER TABLET PO SCH (20:50)
[2022-06-12] VITALS: BP 147/93
[2022-06-12] MEDS: IPRATROPIUM/ALBUTEROL 0.5-3(2.5)MG/3ML NEB HHN SCH ×4 (00:24→20:02)
[2022-06-12] MEDS: HYDROCODONE/ACETAMINOPHEN 10/325MG TABLET PO PRN ×4 (01:00→21:13)
[2022-06-12 04:00] VITALS: BP 149/68
[2022-06-12 08:30] VITALS: BP 144/83
[2022-06-12] MEDS: GUAIFENESIN 600MG ER TABLET PO SCH ×2 (09:12→20:33)
[2022-06-12] MEDS: CINACALCET HCL 90MG TABLET PO SCH (09:12)
[2022-06-12] MEDS: AMLODIPINE 10MG TABLET PO SCH (09:13)
[2022-06-12] MEDS: ASPIRIN 81MG TABLET PO SCH (09:13)
[2022-06-12] MEDS: CALCIUM ACETATE 667MG CAPSULE PO SCH ×3 (09:13→17:51)
[2022-06-12] MEDS: LABETALOL HCL 200MG TABLET PO SCH ×2 (09:13→20:33)
[2022-06-12] MEDS: DIPHENHYDRAMINE 50MG CAPSULE PO PRN ×2 (09:16→15:33)
[2022-06-12] MEDS: FOLIC ACID/VITAMIN B COMP W-C TABLET PO SCH (09:16)
[2022-06-12 11:58] VITALS: BP 126/71
[2022-06-12 12:23] LABS: HEMATOCRIT. 28.9 % (42.0-52.0); HEMOGLOBIN. 9.8 g/dL (14.0-18.0); MEAN CORPUSCULAR HEMOGLOBIN 28.8 pg (28.0-32.0); MEAN CORPUSCULAR VOLUME 84.5 fL (80.0-94.0); PLATELET 146 x1000/uL (130-400); RED BLOOD CELL COUNT 3.42 mill/uL (4.7-6.1)
[2022-06-12] MEDS: AZITHROMYCIN 500 MG in DEXT 5% WATER 250 ML IV SCH (14:14)
[2022-06-12] MEDS: BENZONATATE 100MG CAPSULE PO PRN (14:15)
[2022-06-12 14:24] LABS: PLATELET ESTIMATE NORMAL
[2022-06-12] MEDS: ONDANSETRON HCL 4MG/2ML INJ IV PRN (15:33)
[2022-06-12 16:00] VITALS: BP 131/83
[2022-06-12] MEDS: CEFTRIAXONE 1,000 MG in DEXTROSE 5% WATER 50 ML IV SCH (17:51)
[2022-06-13] MEDS: DIPHENHYDRAMINE 50MG CAPSULE PO PRN ×2 (02:55→16:09)
[2022-06-13] MEDS: IPRATROPIUM/ALBUTEROL 0.5-3(2.5)MG/3ML NEB HHN SCH ×3 (02:59→21:11)
[2022-06-13 07:42] LABS: HEMATOCRIT. 29.2 % (42.0-52.0); HEMOGLOBIN. 9.7 g/dL (14.0-18.0); MEAN CORPUSCULAR HEMOGLOBIN 28.2 pg (28.0-32.0); MEAN CORPUSCULAR VOLUME 84.8 fL (80.0-94.0); MEAN PLATELET VOLUME 7.8 fl (7.4-10.4); PLATELET 162 x1000/uL (130-400); RED BLOOD CELL COUNT 3.44 mill/uL (4.7-6.1); RED CELL DISTRIBUTION WIDTH 20.8 % (11.6-14.6)
[2022-06-13 08:00] VITALS: BP 141/80
[2022-06-13] MEDS: ASPIRIN 81MG TABLET PO SCH (08:33)
[2022-06-13] MEDS: FOLIC ACID/VITAMIN B COMP W-C TABLET PO SCH (08:33)
[2022-06-13] MEDS: AMLODIPINE 10MG TABLET PO SCH (08:34)
[2022-06-13] MEDS: CALCIUM ACETATE 667MG CAPSULE PO SCH ×3 (08:34→17:50)
[2022-06-13] MEDS: GUAIFENESIN 600MG ER TABLET PO SCH ×2 (08:34→20:30)
[2022-06-13] MEDS: HYDROCODONE/ACETAMINOPHEN 10/325MG TABLET PO PRN ×2 (08:35→18:23)
[2022-06-13] MEDS: LABETALOL HCL 200MG TABLET PO SCH ×2 (08:36→20:30)
[2022-06-13] MEDS: CINACALCET HCL 90MG TABLET PO SCH (08:36)
[2022-06-13 12:10] VITALS: BP 134/82
[2022-06-13] MEDS ORDERED: AZIT500T8 MT (13:47)
[2022-06-13] MEDS ORDERED: CEFU500T41 MT (13:47)
[2022-06-13] MEDS: AZITHROMYCIN 500 MG in DEXT 5% WATER 250 ML IV SCH (13:58)
[2022-06-13] MEDS: ONDANSETRON HCL 4MG/2ML INJ IV PRN (14:18)
[2022-06-13 16:28] VITALS: BP 150/91
[2022-06-13 17:48] LABS: PLATELET ESTIMATE NORMAL
[2022-06-13] MEDS: CEFTRIAXONE 1,000 MG in DEXTROSE 5% WATER 50 ML IV SCH (18:16)
[2022-06-13 20:00] VITALS: BP 144/85
[2022-06-14] VITALS: BP 125/79
[2022-06-14] MEDS: BENZONATATE 100MG CAPSULE PO PRN (01:53)
[2022-06-14 04:00] VITALS: BP 153/97
[2022-06-14 08:45] VITALS: BP 152/97
[2022-06-14] MEDS: ASPIRIN 81MG TABLET PO SCH (08:45)
[2022-06-14] MEDS: CALCIUM ACETATE 667MG CAPSULE PO SCH ×2 (08:46→12:50)
[2022-06-14] MEDS: FOLIC ACID/VITAMIN B COMP W-C TABLET PO SCH (08:46)
[2022-06-14] MEDS: LABETALOL HCL 200MG TABLET PO SCH (08:46)
[2022-06-14] MEDS: GUAIFENESIN 600MG ER TABLET PO SCH (08:46)
[2022-06-14] MEDS: AMLODIPINE 10MG TABLET PO SCH (08:46)
[2022-06-14] MEDS: HYDROCODONE/ACETAMINOPHEN 10/325MG TABLET PO PRN (08:47)
[2022-06-14] MEDS: DIPHENHYDRAMINE 50MG CAPSULE PO PRN (08:48)
[2022-06-14] MEDS: CINACALCET HCL 90MG TABLET PO SCH (08:54)
[2022-06-14] MEDS: IPRATROPIUM/ALBUTEROL 0.5-3(2.5)MG/3ML NEB HHN SCH (09:43)
[2022-06-14 12:15] VITALS: BP 136/80
[2022-06-14 12:30] VITALS: BP 136/80
== END 2022-06-14 14:00 | disposition home or self-care (01) | DRG 720 ==
LOC: ER 12:14 → EDBEDREQ 12:46 → 6WST 15:24 → EDBEDREQTM 15:29 → EDBEDREQ 15:29 → ENRESERV 17:33
PROVIDERS: ADMIT Internal Medicine; ATTEND Internal Medicine
PROC: 5A1D70Z Performance of Urinary Filtration, Intermittent, Less than 6 Hours Per Day (ICD-10-PCS; principal; 2022-06-10)
PROC: 5A1D70Z Performance of Urinary Filtration, Intermittent, Less than 6 Hours Per Day (ICD-10-PCS; 2022-06-11)
PROC: 5A1D70Z Performance of Urinary Filtration, Intermittent, Less than 6 Hours Per Day (ICD-10-PCS; 2022-06-13)
DX: A41.9 Sepsis, unspecified organism (principal); T86.12 Kidney transplant failure; J18.9 Pneumonia, unspecified organism; N18.6 End stage renal disease; D69.6 Thrombocytopenia, unspecified; E44.1 Mild protein-calorie malnutrition; E87.1 Hypo-osmolality and hyponatremia; N25.81 Secondary hyperparathyroidism of renal origin; E87.8 Other disorders of electrolyte and fluid balance, not elsewhere classified; I10 Essential (primary) hypertension; E87.5 Hyperkalemia; T82.848A Pain due to vascular prosthetic devices, implants and grafts, initial encounter; Y84.8 Other medical procedures as the cause of abnormal reaction of the patient, or of later complication, without mention of misadventure at the time of the procedure; I16.0 Hypertensive urgency; R07.81 Pleurodynia; Y83.0 Surgical operation with transplant of whole organ as the cause of abnormal reaction of the patient, or of later complication, without mention of misadventure at the time of the procedure; D64.9 Anemia, unspecified; Z96.642 Presence of left artificial hip joint; Z99.2 Dependence on renal dialysis; Z68.23 Body mass index [BMI] 23.0-23.9, adult; Z88.1 Allergy status to other antibiotic agents; Z79.899 Other long term (current) drug therapy; Z90.5 Acquired absence of kidney; Y92.89 Other specified places as the place of occurrence of the external cause
CPT/HCPCS: 36415; 71045; 74177; 80048; 80053; 80202; 83605; 83880; 84295; 84484; 85025; 86705; 86709; 86803; 87340; 93005; 94640; 99291; J0456; J0610; J0696; J1200; J2270; J2405; J3370; J7060; Q0163; Q9967